=== PATIENT | female | born 2000 | race Two or more races ===

== ENCOUNTER 2024-12-31 00:58 | Emergency (ER) | payer OTHER ==
[~2024-12-31] VITALS: Ht 160 cm; Wt 50.8 kg
[2024-12-31] MEDS ORDERED: SPRINTEC 28 DA1 EAC1 PO (01:16)
[2024-12-31] MEDS ORDERED: CEFTRIAXONE SODIUM 1,000 MG VIAL IM STA (03:47)
[2024-12-31 04:02] LABS: URINE APPEARANCE Clear; URINE BILIRRUBIN Negative (NEGATIVE); URINE BLOOD Large; URINE COLOR Yellow; URINE GLUCOSE Negative (NEGATIVE); URINE KETONE 15 (NEGATIVE); URINE NITRATE Negative; URINE PROTEIN Trace (NEGATIVE); URINE UROBILINOGEN 0.2 E.U./dl
[2024-12-31 04:05] LABS: URINE BACTERIA 535.0 uL (0.0-1933); URINE EPITHELIAL CELLS 6.3 uL (0.0-38.8); URINE RBC 18.0 uL (0.0-20.8); URINE WBC 663.7 uL (0.0-23.2)
[2024-12-31] MEDS ORDERED: CEFTRIAXONE SODIUM 1,000 MG VIAL ONE (04:32)
[2024-12-31] MEDS ORDERED: LIDOCAINE HCL/MPF 1% 5ML VIAL IJ ONE (04:32)
[2024-12-31 04:34] LABS: URINE CAST 0.14 uL (0.0-1.40)
[2024-12-31 04:35] LABS: URINE LEUKOCYTE Large
[2024-12-31] MEDS ORDERED: CEPHALEXIN500 MG PO (04:44)
[2024-12-31] MEDS ORDERED: PYRIDIUM DS200 MG PO ×2 (04:45→04:51)
== END 2024-12-31 04:55 ==
LOC: ER 00:58
PROVIDERS: General Practice
DX: R31.9 Hematuria, unspecified (principal); R30.0 Dysuria